=== PATIENT | male | born 1990 | race Caucasian/White ===

== ENCOUNTER 2022-05-07 01:28 | Emergency (ER) | payer MEDICARE, MEDICAID, SELFPAY ==
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
[2022-05-07 01:38] VITALS: BP 131/69; BP 132/82; PULSE 60; PULSE 98; RESP 17; TEMP 36.9; O2SAT 98; BMI 19.0
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
[2022-05-07 04:12] VITALS: BP 133/71; PULSE 67; RESP 16; TEMP 36.9; O2SAT 99
[2022-05-07 06:00] VITALS: PULSE 64; RESP 16; O2SAT 98
--- NOTE | 2022-05-07 06:43 | PC.NURSE ---
Pt refused any assessment prior to discharge.
== END 2022-05-07 06:45 | disposition home or self-care (01) ==
PROVIDERS: Emergency Provider Emergency Medicine
DX: S00.03XA Contusion of scalp, initial encounter (principal); R51.9 Headache, unspecified; M54.2 Cervicalgia; Y29.XXXA Contact with blunt object, undetermined intent, initial encounter; Y93.9 Activity, unspecified; Y92.9 Unspecified place or not applicable; Y99.9 Unspecified external cause status
CPT/HCPCS: 70450; 72125; 99283; 99284